=== PATIENT | female | born 1990 | race Two or more races ===

== ENCOUNTER 2025-06-02 16:32 | Emergency (ER) | payer OTHER ==
[~2025-06-02] VITALS: Ht 152.4 cm; Wt 67.3 kg
[2025-06-02 16:37] VITALS: BP 119/40; PULSE 88; RESP 18; TEMP 94.4; O2SAT 97
== END 2025-06-02 17:09 | disposition left against medical advice (07) ==
LOC: EMS 16:32
DX: S61.051A Open bite of right thumb without damage to nail, initial encounter (principal); Z53.21 Procedure and treatment not carried out due to patient leaving prior to being seen by health care provider; Y04.1XXA Assault by human bite, initial encounter; Y93.89 Activity, other specified; Y92.69 Other specified industrial and construction area as the place of occurrence of the external cause; Y99.0 Civilian activity done for income or pay